=== PATIENT | male | born 1980 | race Two or more races ===

== ENCOUNTER 2019-02-17 18:33 | Inpatient (IN) | payer MEDICAID ==
[~2019-02-17] VITALS: Ht 177.8 cm; Wt 74.3 kg
[2019-02-17] MEDS ORDERED: INFLUENZA VIRUS VACCINE QVS 2019-20 (3YR+)/PF 60 MCG/0.5 ML SYRINGE IM ONE (22:45)
[2019-02-17 23:16] VITALS: BP 120/73
[2019-02-18 07:59] LABS: BASOPHILS % (AUTO) 0.7 % (0.0-2.0); EOSINOPHILS % (AUTO) 4.4 % (1.0-6.0); HEMATOCRIT 41.3 % (41-53); HEMOGLOBIN 14.5 g/dL (13.5-17.5); LYMPHOCYTES # (AUTO) 1.4 K/uL (1.0-4.8); LYMPHOCYTES % (AUTO) 19.4 % (22.0-44.0); MEAN CORPUSCULAR HEMOGLOBIN 33.8 pg (26.0-34.0); MEAN CORPUSCULAR HGB CONC 35.1 G/dL (31.0-37.0); MEAN CORPUSCULAR VOLUME 96 fL (80-100); MONOCYTES # (AUTO) 0.8 K/uL (0.1-1.0); MONOCYTES % (AUTO) 10.8 % (2.0-9.0); NEUTROPHILS # (AUTO) 4.6 K/uL (1.8-7.7); NEUTROPHILS % (AUTO) 64.7 % (40.0-70.0); PLATELET COUNT (AUTO) 252 K/uL (150-450); RED BLOOD CELL COUNT(AUTO) 4.29 MIL/uL (4.50-5.90); RED CELL DISTRIBUTION WIDTH 12.4 % (11.5-14.5)
[2019-02-18 08:14] VITALS: BP 128/68
[2019-02-18 08:28] LABS: ALANINE AMINOTRANSFERASE 31 U/L (12-78); ALBUMIN 3.5 g/dL (3.4-5.0); ALKALINE PHOSPHATASE 47 U/L (46-116); ANION GAP 7 mmol/L (8-16); ASPARTATE AMINOTRANSFERASE 19 U/L (15-37); BILIRUBIN,TOTAL 0.4 mg/dL (0.1-1.0); CALCIUM, TOTAL 9.1 mg/dL (8.8-10.5); CARBON DIOXIDE 28 mmol/L (22-29); CHLORIDE 107 mmol/L (98-107); CHOL/HDL RATIO 2.1 (4.2-7.3); CHOLESTEROL 103 mg/dL (131-200); CREATININE 0.99 mg/dL (0.60-1.30); FREE T4 (FREE THYROXINE) 1.08 ng/dL (0.76-1.46); GLOMERULAR FILTR. RATE CALC > 60 mL/min (>60); GLUCOSE,RANDOM 104 mg/dL (70-110); HDL CHOLESTEROL 49 mg/dL (40-60); LDL CHOL (CALC.) 47 mg/dL (0-130); POTASSIUM 4.2 mmol/L (3.5-5.1); SODIUM SERUM 142 mmol/L (136-145); THYROID STIMULATING HORMONE 1.09 uIU/mL (0.36-3.74); TOTAL PROTEIN, SERUM 6.8 g/dL (6.4-8.2); TRIGLYCERIDES 36 mg/dL (15-150); UREA NITROGEN, BLOOD 19 mg/dL (7-18)
[2019-02-18 09:51] LABS: HEMOGLOBIN A1C 5.7 % (4.5-6.2)
[2019-02-18] MEDS: HALOPERIDOL 5 MG TABLET PO PRN ×2 (10:03→16:40)
[2019-02-18] MEDS: LORazepam 2 MG TABLET PO PRN ×2 (10:03→16:40)
[2019-02-18] MEDS: BuPROPion HCL XL 150 MG ER TABLET PO SCH (11:08)
[2019-02-18] MEDS ORDERED: BACITRACIN 28.4 GM OINTMENT TP PRN (12:15)
[2019-02-18] MEDS ORDERED: ACETAMINOPHEN 325 MG TABLET PO PRN (12:15)
[2019-02-18] MEDS ORDERED: ONDANSETRON HCL 4 MG TABLET PO PRN (12:15)
[2019-02-18] MEDS ORDERED: MAG HYDROX/AL HYDROX/SIMETH ES 30 ML SUSPENSION UDCUP PO PRN (12:15)
[2019-02-18] MEDS ORDERED: MAGNESIUM HYDROXIDE SUSPENSION 30 ML UDCUP PO PRN (12:15)
[2019-02-18] MEDS ORDERED: ALBUTEROL SULFATE HFA 90 MCG/PUFF 8 GM INHALER IH PRN (12:15)
[2019-02-18] MEDS ORDERED: IBUPROFEN 600 MG TABLET PO PRN (12:15)
[2019-02-18] MEDS ORDERED: BENZOCAINE/MENTHOL LOZENGE MM PRN (12:15)
[2019-02-18] MEDS ORDERED: CloNIDine HCL 0.1 MG TABLET PO PRN (12:15)
[2019-02-18] MEDS ORDERED: PETROLATUM,WHITE 28 GM JELLY TP PRN (12:15)
[2019-02-18] MEDS ORDERED: LOPERAMIDE HCL 2 MG CAPSULE PO PRN (12:15)
[2019-02-18 16:57] VITALS: BP 142/75
[2019-02-18] MEDS: OLANZapine 5 MG TABLET PO SCH (17:36)
[2019-02-18 18:40] VITALS: BP 135/68
[2019-02-18] MEDS: ZOLPIDEM TARTRATE 10 MG TABLET PO PRN (23:52)
[2019-02-19 00:04] VITALS: BP 114/80
[2019-02-19 08:00] VITALS: BP 127/66
[2019-02-19] MEDS: BuPROPion HCL XL 150 MG ER TABLET PO SCH (08:14)
[2019-02-19] MEDS: OMEPRAZOLE 20 MG CAPSULE PO SCH (08:14)
[2019-02-19] MEDS: DOCUSATE SODIUM 100 MG CAPSULE PO SCH (08:14)
[2019-02-19] MEDS: OLANZapine 5 MG TABLET PO SCH ×2 (08:14→16:27)
[2019-02-19] MEDS ORDERED: BuPROPion HCL XL 150 MG ER TABLET PO ONE (12:15)
[2019-02-19 16:18] VITALS: BP 123/69
[2019-02-20] MEDS: ZOLPIDEM TARTRATE 10 MG TABLET PO PRN (00:05)
[2019-02-20] MEDS: LORazepam 2 MG TABLET PO PRN ×2 (00:05→08:33)
[2019-02-20 01:18] VITALS: BP 120/72
[2019-02-20 08:00] VITALS: BP 129/73
[2019-02-20] MEDS: OLANZapine 5 MG TABLET PO SCH (08:02)
[2019-02-20] MEDS: OMEPRAZOLE 20 MG CAPSULE PO SCH (08:02)
[2019-02-20] MEDS: DOCUSATE SODIUM 100 MG CAPSULE PO SCH (08:02)
[2019-02-20] MEDS: HALOPERIDOL 5 MG TABLET PO PRN (08:33)
[2019-02-20] MEDS ORDERED: BuPROPion HCL XL 150 MG ER TABLET PO SCH (09:00)
[2019-02-20] MEDS ORDERED: OLAN5TAB2 PO (10:23)
[2019-02-20] MEDS ORDERED: BUPR-93 PO (10:23)
== END 2019-02-20 13:15 | disposition home or self-care (01) | DRG 751 ==
LOC: B3A 21:07
PROVIDERS: ADMIT Psychiatry & Neurology Psychiatry; ATTEND Psychiatry & Neurology Psychiatry
DX: F29 Unspecified psychosis not due to a substance or known physiological condition (principal); F15.20 Other stimulant dependence, uncomplicated; F41.9 Anxiety disorder, unspecified; G47.00 Insomnia, unspecified; K59.00 Constipation, unspecified; Z23 Encounter for immunization
CPT/HCPCS: 83036; 84439; 84443; 87081; 90686

== ENCOUNTER 2019-10-09 13:41 | Inpatient (IN) | payer MEDICAID ==
[~2019-10-09] VITALS: Ht 180.3 cm; Wt 73.4 kg
[~2019-10-09 13:41] MED LIST: BUPR-93 PO; OLAN5TAB2 PO
[2019-10-09 15:51] LABS: BASOPHILS % (AUTO) 0.7 % (0.0-2.0); EOSINOPHILS % (AUTO) 1.7 % (1.0-6.0); HEMATOCRIT 40.4 % (41-53); HEMOGLOBIN 13.8 g/dL (13.5-17.5); LYMPHOCYTES # (AUTO) 1.4 K/uL (1.0-4.8); LYMPHOCYTES % (AUTO) 14.5 % (22.0-44.0); MEAN CORPUSCULAR HEMOGLOBIN 33.1 pg (26.0-34.0); MEAN CORPUSCULAR HGB CONC 34.2 G/dL (31.0-37.0); MEAN CORPUSCULAR VOLUME 97 fL (80-100); MONOCYTES # (AUTO) 0.9 K/uL (0.1-1.0); MONOCYTES % (AUTO) 9.3 % (2.0-9.0); NEUTROPHILS # (AUTO) 7.3 K/uL (1.8-7.7); NEUTROPHILS % (AUTO) 73.8 % (40.0-70.0); PLATELET COUNT (AUTO) 253 K/uL (150-450); RED BLOOD CELL COUNT(AUTO) 4.17 MIL/uL (4.50-5.90); RED CELL DISTRIBUTION WIDTH 12.6 % (11.5-14.5)
[2019-10-09 16:14] LABS: ANION GAP 9 mmol/L (8-16); CARBON DIOXIDE 24 mmol/L (22-29); CHLORIDE 104 mmol/L (98-107); CREATININE 0.98 mg/dL (0.60-1.30); GLOMERULAR FILTR. RATE CALC > 60 mL/min (>60); GLUCOSE,RANDOM 105 mg/dL (70-110); POTASSIUM 3.9 mmol/L (3.5-5.1); SODIUM SERUM 137 mmol/L (136-145); UREA NITROGEN, BLOOD 14 mg/dL (7-18)
[2019-10-09 16:20] LABS: ALANINE AMINOTRANSFERASE 28 U/L (12-78); ALBUMIN 4.3 g/dL (3.4-5.0); ALKALINE PHOSPHATASE 54 U/L (46-116); ASPARTATE AMINOTRANSFERASE 23 U/L (15-37); BILIRUBIN,TOTAL 0.4 mg/dL (0.1-1.0); TOTAL PROTEIN, SERUM 7.8 g/dL (6.4-8.2)
[2019-10-09 17:13] LABS: AMPHET/METH SCREEN,URINE NEGATIVE (NEGATIVE); BARBITURATE SCREEN, URINE NEGATIVE (NEGATIVE); BENZODIAZEPINES SCREEN,URINE NEGATIVE (NEGATIVE); CANNABINOID SCREEN,URINE POSITIVE (NEGATIVE); COCAINE SCREEN,URINE NEGATIVE (NEGATIVE); METHADONE SCREEN, URINE NEGATIVE (NEGATIVE); OPIATE SCREEN,URINE NEGATIVE (NEGATIVE); PHENCYCLIDINE SCREEN,URINE NEGATIVE (NEGATIVE)
[2019-10-09] MEDS ORDERED: HALOPERIDOL 5 MG TABLET PO ONE (17:15)
[2019-10-09] MEDS ORDERED: LORazepam 1 MG TABLET PO ONE (17:15)
[2019-10-09] MEDS ORDERED: DiphenhydrAMINE HCL 50 MG/ML VIAL IM ONE (17:45)
[2019-10-09] MEDS ORDERED: OLANZapine 5 MG TABLET PO ONE (17:45)
[2019-10-09] MEDS ORDERED: ZOLPIDEM TARTRATE 10 MG TABLET PO PRN (18:15)
[2019-10-09] MEDS: OLANZapine 5 MG TABLET PO SCH (21:35)
[2019-10-09] MEDS ORDERED: NICOTINE 14 MG/24 HOUR PATCH TD PRN (22:45)
[2019-10-10] MEDS: HALOPERIDOL 5 MG TABLET PO PRN ×2 (07:50→21:09)
[2019-10-10] MEDS: OLANZapine 5 MG TABLET PO SCH ×2 (07:50→16:18)
[2019-10-10] MEDS: LORazepam 2 MG TABLET PO PRN ×2 (07:50→21:09)
[2019-10-10] MEDS ORDERED: IBUPROFEN 600 MG TABLET PO PRN (08:15)
[2019-10-10] MEDS ORDERED: ONDANSETRON HCL 4 MG TABLET PO PRN (08:15)
[2019-10-10] MEDS ORDERED: ACETAMINOPHEN 325 MG TABLET PO PRN (08:15)
[2019-10-10] MEDS ORDERED: MAGNESIUM HYDROXIDE SUSPENSION 30 ML UDCUP PO PRN (08:15)
[2019-10-10] MEDS ORDERED: OMEPRAZOLE 20 MG CAPSULE PO PRN (08:15)
[2019-10-10] MEDS ORDERED: BENZOCAINE/MENTHOL LOZENGE MM PRN (08:15)
[2019-10-10] MEDS ORDERED: DOCUSATE SODIUM 100 MG CAPSULE PO PRN (08:15)
[2019-10-10] MEDS ORDERED: CloNIDine HCL 0.1 MG TABLET PO PRN (08:15)
[2019-10-10] MEDS ORDERED: PETROLATUM,WHITE 28 GM JELLY TP PRN (08:15)
[2019-10-10] MEDS ORDERED: MAG HYDROX/AL HYDROX/SIMETH ES 30 ML SUSPENSION UDCUP PO PRN (08:15)
[2019-10-10] MEDS ORDERED: ALBUTEROL SULFATE HFA 90 MCG/PUFF 8 GM INHALER IH PRN (08:15)
[2019-10-10] MEDS ORDERED: LOPERAMIDE HCL 2 MG CAPSULE PO PRN (08:15)
[2019-10-10] MEDS ORDERED: BACITRACIN 28.4 GM OINTMENT TP PRN (08:15)
[2019-10-10 08:41] VITALS: BP 156/94
[2019-10-10 16:32] VITALS: BP 133/71
[2019-10-11] MEDS: HALOPERIDOL 5 MG TABLET PO PRN (08:18)
[2019-10-11] MEDS: OLANZapine 5 MG TABLET PO SCH ×2 (08:18→16:33)
[2019-10-11] MEDS: LORazepam 2 MG TABLET PO PRN (08:18)
[2019-10-11 08:43] VITALS: BP 154/93
[2019-10-11 19:40] VITALS: BP 139/79
[2019-10-12] MEDS: LORazepam 2 MG TABLET PO PRN (02:08)
[2019-10-12 03:15] VITALS: BP 139/93
[2019-10-12 08:00] VITALS: BP 150/89
[2019-10-12] MEDS: OLANZapine 5 MG TABLET PO SCH (08:33)
[2019-10-12] MEDS ORDERED: OLAN5TAB2 PO (13:21)
== END 2019-10-12 16:00 | disposition home or self-care (01) | DRG 885 ==
LOC: EMS 13:46 → 3EI 18:11
PROVIDERS: ADMIT Psychiatry & Neurology Psychiatry; ATTEND Psychiatry & Neurology Child & Adolescent Psychiatry
DX: F25.9 Schizoaffective disorder, unspecified (principal); R45.851 Suicidal ideations; F41.9 Anxiety disorder, unspecified; G47.00 Insomnia, unspecified; K59.00 Constipation, unspecified; Z59.0 Homelessness; Z87.891 Personal history of nicotine dependence; Z91.19 Patient's noncompliance with other medical treatment and regimen
CPT/HCPCS: G0480; J1200